=== PATIENT | female | born 1980 | race Two or more races ===

== ENCOUNTER 2024-12-27 15:15 | Inpatient (IN) | payer MEDICAID ==
[~2024-12-27] VITALS: Ht 152.4 cm; Wt 65.8 kg
[2024-12-27] MEDS: HYDROMORPHONE 1 MG/1 ML DISP.SYRIN IV PRN (17:25)
[2024-12-27] MEDS ORDERED: Z GUARD REMEDY 4 OZ OINT TP PRN (17:30)
[2024-12-27] MEDS: ENOXAPARIN SODIUM 40 MG/0.4 ML DISP.SYRIN SQ SCH (17:30)
[2024-12-27] MEDS ORDERED: ONDANSETRON HCL/PF 4 MG/2 ML VIAL IVP PRN (17:30)
[2024-12-27] MEDS: IV LR 1000 ML 1,000 ML IV SCH (17:35)
[2024-12-27 17:44] VITALS: BP 150/91; TEMP 97.8; O2SAT 99
[2024-12-27] MEDS ORDERED: Thiamine 300 MG in IV D5W 50 ML IV SCH (18:30)
[2024-12-27] MEDS: Thiamine 300 MG in IV D5W 100 ML IV SCH (18:45)
[2024-12-27] MEDS ORDERED: SERT25TA PO (19:05)
[2024-12-27] MEDS ORDERED: HYDR-500 PO (19:05)
[2024-12-27] MEDS ORDERED: ACYC400T19 PO (19:05)
[2024-12-27] MEDS ORDERED: TRAZ-182 PO (19:05)
[2024-12-27] MEDS ORDERED: GABA-532 PO (19:05)
[2024-12-27 19:34] LABS: PLATELET COUNT (AUTO) 303 K/uL (150-450); RED BLOOD CELL COUNT(AUTO) 3.97 MIL/uL (4.0-5.2); RED CELL DISTRIBUTION WIDTH 18.7 % (11.5-15.0); WHITE BLOOD COUNT (AUTO) 12.3 K/uL (4.3-11.0)
[2024-12-27 19:52] LABS: LDL 55 mg/dL (0-99)
[2024-12-27 19:54] LABS: ASPARTATE AMINOTRANSFERASE 17 U/L (15-37); CALCIUM, SERUM 8.5 mg/dL (8.5-10.1); CREATININE 0.7 mg/dL (0.6-1.3); PHOSPHORUS 3.2 mg/dL (2.5-4.9); SODIUM SERUM 135 mmol/L (136-145); TOTAL PROTEIN, SERUM 6.7 g/dL (6.4-8.2); UREA NITROGEN, BLOOD 8 mg/dL (7-18)
[2024-12-27 20:00] VITALS: BP_SYST 131; BP_SYST 176; BP_DIAS 104; BP_DIAS 98; TEMP 97.5; O2SAT 98
[2024-12-28] MEDS: TRAZODONE 50 MG TABLET PO ONE (02:25)
[2024-12-28 06:06] LABS: PLATELET COUNT (AUTO) 302 K/uL (150-450); RED BLOOD CELL COUNT(AUTO) 4.20 MIL/uL (4.0-5.2); RED CELL DISTRIBUTION WIDTH 18.4 % (11.5-15.0); WHITE BLOOD COUNT (AUTO) 11.6 K/uL (4.3-11.0)
[2024-12-28 06:18] LABS: ASPARTATE AMINOTRANSFERASE 16.0 U/L (15-37); CALCIUM, SERUM 8.5 mg/dL (8.5-10.1); CREATININE 0.6 mg/dL (0.6-1.3); SODIUM SERUM 136.0 mmol/L (136-145); TOTAL PROTEIN, SERUM 6.8 g/dL (6.4-8.2); UREA NITROGEN, BLOOD 6.0 mg/dL (7-18)
[2024-12-28 08:00] VITALS: BP 148/104; TEMP 98.1; O2SAT 100
[2024-12-28] MEDS: THIAMINE HCL 100 MG TABLET PO SCH (09:23)
[2024-12-28] MEDS: PANTOPRAZOLE 40 MG TABLET.DR PO SCH (09:23)
[2024-12-28 11:36] LABS: PREGNANCY TEST URINE QUAL NEGATIVE (NEGATIVE)
== END 2024-12-28 14:51 | disposition left against medical advice (07) | DRG 282 ==
LOC: MED 15:15
PROVIDERS: ADMIT Nurse Practitioner Acute Care; ATTEND Nurse Practitioner Acute Care
DX: K85.90 Acute pancreatitis without necrosis or infection, unspecified (principal); E86.0 Dehydration; Z53.29 Procedure and treatment not carried out because of patient's decision for other reasons; Y90.9 Presence of alcohol in blood, level not specified; F10.90 Alcohol use, unspecified, uncomplicated; Z88.5 Allergy status to narcotic agent; Z88.6 Allergy status to analgesic agent; Z79.85 Long-term (current) use of injectable non-insulin antidiabetic drugs
CPT/HCPCS: 36415; 80053-TC; 80061-TC; 83690-TC; 83735-TC; 84100-TC; 84703-TC; 85025-TC; A4223; G0378; J1171; J1650; J3411; J7060; J7120